=== PATIENT | male | born 1990 ===

== ENCOUNTER 2023-07-07 12:02 | Observation (INO) | payer OTHER ==
[~2023-07-07] VITALS: Ht 170.2 cm; Wt 107.9 kg
[2023-07-07 12:51] LABS: BILIRUBIN, URINE NEGATIVE (negative); BLOOD/HGB, URINE NEGATIVE (Negative); KETONE, URINE NEGATIVE (Negative); LEUK ESTERASE, URINE NEGATIVE (negative); NITRITE, URINE NEGATIVE (negative)
[2023-07-07 12:58] LABS: RDW 13.9 (10.5-15.0)
[2023-07-07 13:00] LABS: WHITE BLOOD CELLS, URINE 0-1 /HPF (0-5)
[2023-07-07 13:01] LABS: REFLEX CULTURE, URINE No (No)
[2023-07-07 13:18] LABS: BASOPHILS 0.7 % (0-2); EOSINOPHILS 0.5 % (0-6); HEMOGLOBIN 14.7 g/dL (12.0-18.0); LYMPHOCYTES 20.8 % (24-44); MCH 27.8 (27-36); MCHC 33.3 g/dl (30-36); MCV 83.6 fl (81-99); PLATELET COUNT 350 K/uL (140-440); RBC 5.27 M/ul (4.3-5.7)
[2023-07-07 13:38] LABS: ALBUMIN 3.8 g/dL (3.4-5.0); ALBUMIN/GLOBULIN RATIO 0.93 (1.1-2.4); ANION GAP 12.8 (7-21); BILIRUBIN, TOTAL 0.5 ng/dL (0.2-1.0); CALCIUM 8.9 mg/dL (8.5-10.1); CREATININE, SERUM 1.1 mg/dL (0.70-1.30); POTASSIUM 3.8 mmol/L (3.5-5.1); PROTEIN, TOTAL 7.9 g/dL (6.4-8.2)
--- NOTE | 2023-07-07 17:22 | CONS ---
[facility] [address], [place] [address] Signed DATE OF CONSULTATION: 07/07/2023 CHIEF COMPLAINT: Periumbilical abdominal pain. 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 Yesterday he started to develop what he thought was some nausea and stomach flu-like symptoms with some epigastric pain. It became more periumbilical and now right lower quadrant. He came to emergency room for evaluation. He is tender in the right lower quadrant with a white count of 12.7. CT scan of the abdomen and pelvis shows a 1 cm appendix without any obvious inflammation. I have been asked to see him as a general surgeon on-call. In the meantime, he has received his Rocephin and Flagyl. PAST MEDICAL HISTORY: None. PAST SURGICAL HISTORY: Left inguinal hernia repair around [age] years of age. SOCIAL HISTORY: He does not smoke or drink. He is to [place] at [phone]. 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 Dr. Nia Bowen is his primary care provider. FAMILY HISTORY: His mom has diabetes. REVIEW OF SYSTEMS: He had 10 systems reviewed and he told me about his inguinal hernia. ALLERGIES: None. MEDICATIONS: None. PHYSICAL EXAMINATION: VITAL SIGNS: His blood pressure is 157/94, his heart rate is 74, his respiratory rate is 17, temperature is 97.3, he is 97% on room air. He is 5 feet 7 inches tall. There is no weight listed in the computer. GENERAL: Thomas is a 32-year-old gentleman who is lying supine semi-recumbent in his ER bed watching TV. He is by himself currently. He has called his . He is in no Electronically Signed By: PAM ELY MD 07/07/23 1722 PATIENT NAME: THOMAS SUAREZ CONSULTATION DATE OF : [birth year] REPORT #: [id number] PHYSICIAN: PAM ELY MD PCP: NIA BOWEN MD REPORT IS CONFIDENTIAL AND NOT TO BE RELEASED WITHOUT AUTHORIZATION [facility] [address], [place] [address] Signed acute distress. He is alert, awake, and interactive. LUNGS: Clear to auscultation bilaterally. HEART: Regular rate and rhythm without murmurs. ABDOMEN: Moderately protuberant, but soft. He clearly has tenderness to deep palpation in the right lower quadrant. LABORATORY DATA: His white blood cell count is 12.7, hemoglobin 14. Electrolytes unremarkable. Liver function tests are negative. Albumin is 3.8. His UA is negative. RADIOGRAPHIC STUDIES: CT scan of the abdomen and pelvis is reviewed including the report and the images. He does have a 1 cm appendix without obvious periappendiceal inflammation. However, the location of his appendix corresponds with the physical exam. ASSESSMENT AND PLAN: Thomas is a 32-year-old gentleman, who appears to have early appendicitis. He OR for his surgery. I gave him our brochure on appendicitis. We looked at it page by page. He understands the location and function of the appendix. He understands laparoscopic versus open appendectomy. There is risk including, but not limited to bleeding, infection, scarring, change in contour of the skin, damage to bowel, appendiceal stump leak, postoperative intra-abdominal abscess, incisional hernias and other unforeseen comorbidities. We have reviewed the expected intraop and postop course. He has expressed understanding and would like to proceed. Pam Ely MD ALB/MODL /[id number] cc: MD Pam Gracia MD Copies: NIA BOWEN DMD Electronically Signed By: PAM ELY MD 07/07/23 172 PATIENT NAME: THOMAS SUAREZ CONSULTATION DATE OF : [birth year] REPORT #: [id number] PHYSICIAN: PAM ELY MD PCP: NIA BOWEN MD REPORT IS CONFIDENTIAL AND NOT TO BE RELEASED WITHOUT AUTHORIZATION [facility] [address] [place] [address] Signed PAM ELY MD ~ Electronically Signed By: PAM ELY MD 07/07/23 172 PATIENT NAME: THOMAS SUAREZ CONSULTATION DATE OF : [birth year] REPORT #: [id number] PHYSICIAN: PAM ELY MD PCP: NIA BOWEN MD REPORT IS CONFIDENTIAL AND NOT TO BE RELEASED WITHOUT AUTHORIZATION
--- NOTE | 2023-07-07 17:31 | NUR ---
07/07/23 1731 Mitra Carcamo 1714-PATIENT ARRIVES TO PACU ON 6L VIA MASK. PATIENT IS REACTIVE. RESP EVEN AND UNLABORED.
--- NOTE | 2023-07-07 17:43 | NUR ---
PT ARRIVED FROM PACU BY STRETCHER. PT TRANSFERS SELF TO BED BY SLIDING SELF OVER TO BED. PT ALERT AND OREINTED TO ALL, REPORTS 3/10 ABDOMINAL PAIN AT THIS TIME, PT DENIES NEED FOR PAIN MEDICATION. VITAL SIGNS STABLE. PAULINE, GLOBAL DIRECTOR AIR AND CLIMATE CHANGE, GIVES REPORT TO POONAM OLSON PRIMARY RN. THIS RN ASSISTING WITH ADMISSION PROCESS. PTS AT BEDSIDE, UPDATED ON PLAN OF CARE AND PTS STATUS. PT REPORTS NEED TO VOID, PT UP TO STAND AND USE BEDSIDE URINAL. PT INDEPENDANT WITH STANDING ALTHOUGH REPORTS MINOR DIZZINESS. PT UNABLE TO VOID AT THIS TIME. PT BACK TO BED WITH MINIMAL ASSISTANCE. ICE PACK PROVIDED, PT STATES THIS HELPS THE PAIN STATING "I DONT' REALLY HAVE ANY "PAIN" RIGHT NOW." CPOX IN PLACE, PT TOLEARTING ROOM AIR WITH OXGYEN SATURATIONS ABOVE 94%. HEART TONES REGULAR. ABDOMEN SOFT, MILDY TENDER TO TOUCH. PT DENIES ABDOMINAL DISTENTION. BOWEL TONES HYPOACTIVE. LAPAROSCOPIC SITES X 3 WNL WITH GAUZE INTACT AND SMALL AMOUNTS OF RED SHADOWING SEEN. PT REQUESTS ICE WATER, JELLOW AND PUDDING, PROVIDED. PT TOELRATES WELL. QUESTIONS ASKED BY FAMILY AND PT, ANSWERED. NO ADDITIONAL REQUESTS OR COMPLAINTS. SCD'S IN PLACE. IV FLUIDS STARTED. CALL LIGHT WIHTIN REACH. FALL PRECAUTIONS REVIEWED WITH PT. BED RAILS UP. PTS REMAINS AT BEDSIDE.
[2023-07-07 17:44] VITALS: BP 141/89
[2023-07-07 18:46] VITALS: BP 137/81
--- NOTE | 2023-07-07 18:48 | NUR ---
PATIENT AWAKE IN BED, ALERT AND ORIENTED X4, NO DISTRESS. PT REPORTS TOLERABLE ABDOMINAL PAIN, 2/10. VITAL SIGNS STABLE. ABDOMINAL DRESSINGS UNCHANGED. PT DENIES NEEDS AT THIS TIME. CALL LIGHT WITHIN REACH.
--- NOTE | 2023-07-07 19:20 | NUR ---
REPORT RECIEVED FROM CARLOS FU AND BEHZAD FU. BOARD UPDATED. PATIENT RESTING IN BED WITH EYES CLOSED. CALL LIGHT WITHIN REACH.
[2023-07-07 19:56] VITALS: BP 133/82
--- NOTE | 2023-07-07 20:00 | NUR ---
ASSESSMENT AND VITAL SIGNS DONE. PATIENT UP TO BR, SBA. SCDS ON. IV ASSESSED AND FLUSHED WITH 10 MLS OF NS, WNL. IV INFUSING PER ORDER, SEE MAR. PATIENT DENIES ANY PAIN AT THIS TIME. WATER REFRESHED. SNACKS GIVEN. CALL LIGHT WITHIN REACH. NO OTHER NEEDS AT THIS TIME.
--- NOTE | 2023-07-07 22:32 | NUR ---
PATIENT RESTING IN BED WATCHING TV. PATIENT UP TO BR, SBA. Pt BACK TO BED. CPOX ON. CALL LIGHT WITHIN REACH. NO OTHER NEEDS AT THIS TIME.
--- NOTE | 2023-07-08 00:04 | NUR ---
PATIENT RESTING IN BED WATCHING TV. Pt STATES HE DOESNT NEED ANYTHING. CALL LIGHT WITHIN REACH. NO OTHER NEEDS AT THIS TIME.
[2023-07-08 02:13] VITALS: BP 134/75
--- NOTE | 2023-07-08 02:40 | NUR ---
PATIENT UP TO BR. ASSESSMENT AND VITAL SIGNS DONE. SBA TO BR. Pt BACK TO BED. Pt COMPLAIN OF 3/10 PAIN THAT INCREASES TO 7/10 WHEN HE COUGHS. PRN PAIN MEDICATION ADMINISTERED, SEE MAR. WATER REFRESHED. CALL LIGHT WITHIN REACH. NO OTHER NEEDS AT THIS TIME.
--- NOTE | 2023-07-08 04:01 | NUR ---
PATIENT RESTING IN BED RESTING WITH EYES CLOSED. RESP OBSERVED. CALL LIGHT WITHIN REACH. NO OTHER NEEDS AT THIS TIME.
[2023-07-08 05:06] VITALS: BP 131/63
--- NOTE | 2023-07-08 07:14 | NUR ---
RECIEVED REPORT FROM NICKIE RAMOS AND NICKIE CARRERO. PT RESTING IN BED WITH EYES CLOSED, BREATHING EVEN AND UNLABORED CPOX REMAINS ON WITH O2 SAT AT 95% ON RA. CALL LIGHT WITHIN REACH, BED RAILS UP. ASSUMING CARE OF PT WITH NICKIE DUKES.
--- NOTE | 2023-07-08 07:30 | NUR ---
REPORT RECEIVED FROM NICKIE RAMOS. THIS RN ASSUMING CARE OF PT WITH NICKIE WEN. PT RESTING IN BED ON LEFT SIDE WITH EYES CLOSED, RESPIRATIONS EVEN AND UNLABORED. DR. ELY UPDATED ON PT STATUS. AWAITING NEW ORDERS.
[2023-07-08] MEDS ORDERED: HYDROCODON-ACE1 EAC8 PO (08:11)
--- NOTE | 2023-07-08 08:40 | NUR ---
MORNING ASSESSMENT. PT STATES PAIN IS 3/10, REQUESTS PAIN MEDICATION, GIVEN (SEE EMAR). IVF DC'D PER ORDER, IV SALINE LOCKED. PT AMBULATES TO RESTROOM AND AROUND ROOM INDEPENDENTLY. CPOX DC'D D/T O2 SATURATION REMAINING >95% ON RA AND DC ORDER. LUNG SOUNDS CLEAR IN ALL LOBES. NO EDEMA PRESENT, SENSATION PRESENT IN ALL EXTREMETIES, CAP REFILL BRISK <3 SECONDS IN ALL EXTREMETIES. SCDs NOT IN PLACE D/T PT WALKING AROUND ROOM AND PER PT REQUEST. ABDOMEN MILDLY DISTENDED, PT STATES HE FEELS "MAYBE A LITTLE BLOATED". ABDOMEN TENDER MIDLINE AROUND SURGICAL SITE. BOWEL TONES ACTIVE IN ALL QUADRANTS, PT DENIES NAUSEA, NO BM SINCE BEFORE SURGERY PER PT. PT TOLERATING FULL LIQUID DIET WELL, MOVES TO REGULAR DIET THIS MORNING, PT ORDERS REGULAR DIET BREAKFAST, HAS NOT COME TO ROOM YET. PT VOIDING QUANTITY SUFFICIENT CLEAR YELLOW URINE. SURGICAL SITES WNL, SCANT AMOUNT OF SEROSANGUINOUS DRAINAGE PRESENT ON INCISIONS, EDGES WELL APPROXIMATED ON ALL THREE SITES, NO SIGNS OF REDNESS/SWELLING. PT STATES NO FURTHER NEEDS AT THIS TIME, CALL LIGHT WITHIN REACH, BED RAILS UP. PT BREAKFAST ARRIVES TO BEDSIDE.
--- NOTE | 2023-07-08 09:10 | OR ---
[facility] [address], [place] [address] Signed DATE OF OPERATION: 07/07/2023 SURGEON: Pam Ely MD PREOPERATIVE DIAGNOSIS: Acute appendicitis. POSTOPERATIVE DIAGNOSIS: Acute inflamed appendicitis. PROCEDURE: Laparoscopic appendectomy. ESTIMATED BLOOD LOSS: None. FINDINGS: Thomas indeed had a thickened indurated and inflamed appendix. 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 Yesterday, he started to notice feelings of nausea like he had the flu. This started epigastric moved to the periumbilical area now is in the right lower quadrant. He came to the emergency room for evaluation. He is tender in the right lower quadrant to deep palpation. White count was a little up at 12.7. His CT scan showed this 1 cm thickened appendix, but no obvious inflammation. I have been asked to see him as a general surgeon on-call. In the meantime, he received his Rocephin and Flagyl. I had met with Thomas in the ER. I brought with me a brochure and I went through a page by page on the location of function of the appendix. We discussed laparoscopic versus open appendectomy. He understands expected intraop and postop course. There is risk including, but not limited to bleeding, infection, scarring, change in contour, skin, damage to bowel, appendiceal stump leak, postoperative intraabdominal abscess incisional hernias and other unforeseen comorbidities. He had expressed understanding and wished to proceed. DESCRIPTION OF PROCEDURE: Thomas was taken directly from the ER down to the OR. He was placed under general endotracheal tube anesthesia. He had already received the Rocephin and Flagyl. He received subcutaneous heparin. SCDs were utilized. He was then prepped and draped in the usual sterile fashion. All trocars were then placed in usual positions under direct Electronically Signed By: PAM ELY MD 07/08/23 0910 PATIENT NAME: THOMAS SUAREZ OPERATIVE REPORT DATE OF : [birth year] REPORT #: [id number] PHYSICIAN: PAM ELY MD PCP: NIA BOWEN MD REPORT IS CONFIDENTIAL AND NOT TO BE RELEASED WITHOUT AUTHORIZATION [facility] [address] [place] [id number] Signed visualization of camera without difficulty. His appendix was visualized in the right lower quadrant. We took pictures throughout for photodocumentation. The mesoappendix was a little bit adherent to the lateral pelvic sidewall. It was gently cauterized and then bluntly dissected free, so we could lift the appendix up for better visualization. We divided the mesoappendix near the base of the appendix in the cecum and we divided the appendix from the cecum with the help of our linear stapler. There was good hemostasis on the staple line. We used our 60 mm vascular load to come across the full length of his mesoappendix. This was divided again with good hemostasis. The appendix was then placed into an EndoCatch bag and taken out through the right subcostal trocar site. We used our laparoscopic suturing device to pass 0-Vicryl suture on either side of the fascia of the subxiphoid trocar site. This was tied down to close this fascia primarily. After this, all the gas was allowed to escape and all the trocars were removed. We closed the fascia of the supraumbilical trocar site with interrupted vqykzz-ih-otcce and simple 0-Vicryl sutures. Local anesthetic was injected into all trocar sites. Each trocar site was irrigated and suctioned out until clear. The skin and dermis of each trocar site were closed with interrupted 3-0 subcuticular Monocryl sutures. Dry gauze and tape was applied to all three incisions. The Jovel catheter was removed without difficulty. Thomas was weaned from his anesthesia, extubated in the OR, and taken to recovery room in stable condition. Pam Ely MD ALB/MODL /[id number] cc: Pam Ely MD Patient chart Nia Bowen MD Copies: PMA ELY MD Electronically Signed By: PAM ELY MD 07/08/23 0910 PATIENT NAME: HTOMAS SUAREZ OPERATIVE REPORT DATE OF : [birth year] REPORT #: [id number] PHYSICIAN: PAM ELY MD PCP: NIA BOWEN MD REPORT IS CONFIDENTIAL AND NOT TO BE RELEASED WITHOUT AUTHORIZATION [address] [address] Signed NIA BOWEN DMD ~ Electronically Signed By: PAM ELY MD 07/08/23 0910 PATIENT NAME: ERICKTHOMAS OPERATIVE REPORT DATE OF : [birth year] REPORT #: [id number] PHYSICIAN: PAM ELY MD PCP: NIA BOWEN MD REPORT IS CONFIDENTIAL AND NOT TO BE RELEASED WITHOUT AUTHORIZATION
--- NOTE | 2023-07-08 09:10 | DS ---
[facility] [address], [place] [address] Signed ADMISSION DATE: 07/07/2023 DISCHARGE DATE: 07/08/2023 FINAL DIAGNOSES: Acute inflamed appendicitis. PROCEDURE: Laparoscopic appendectomy. 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 He developed what he felt was like the stomach flu symptoms with some nausea and anorexia. It started epigastric when periumbilical and then finally right lower quadrant. He came to emergency room for evaluation. He was tender in the right lower quadrant with normal vital signs. White count was slightly up at 12.7. CT scan showed a 1 cm appendix without any significant inflammation. I have been asked to see him as a general surgeon on-call in the emergency room. HOSPITAL COURSE: We took Thomas directly over to the OR and did his uncomplicated laparoscopic appendectomy. He had acute inflamed appendicitis. He has done well both intraop and postop. He has already been doing well on a full liquid diet. He says he feels very comfortable going home. He has no nausea, vomiting, and no bowel movement yet. He has no abdominal distention. Pain has been controlled with the hydrocodone. DISCHARGE PLANS AND MEDICATIONS: Thomas is going to be discharged to home with a prescription for [place] 10/325 one tablet p.o. q.6 hours p.r.n. for severe postoperative pain. We will dispense 20 tablets with no refills. He can use Tylenol, ibuprofen or Aleve as needed for mqxz-iq-nniqgvms postoperative pain. That can be purchased [id number]-[id number]-[id number]. He has no chronic medications. He can always use ice over these areas as well. He is welcome to advance his diet as tolerated. He can continue his activities of daily living including walking up and down stairs and showering bathing as usual. He is not to do any heavy pushing, pulling, or lifting over about 20 pounds. He is not to return to work as an officer at the f[employer]. He is not to drive while on narcotics. I will have him back in the office in 7-10 days to review his results. He has expressed understanding and agrees with the above plan. Electronically Signed By: PAM LEY MD 07/08/23 0910 PATIENT NAME: THOMAS SUAREZ DISCHARGE SUMMARY DATE OF : [birth year] REPORT #: [id number] PHYSICIAN: PAM ELY MD PCP: NIA BOWEN MD REPORT IS CONFIDENTIAL AND NOT TO BE RELEASED WITHOUT AUTHORIZATION [address] [address] Signed Pam Ely MD ALB/GERRYL /[id number] cc: MD Pam Gracia MD Copies: NIA BOWEN DMD, ANDREW L MD ~ Electronically Signed By: PAM ELY MD 07/08/23 0910 PATIENT NAME: THOMAS SUAREZ Juany DISCHARGE SUMMARY DATE OF : [birth year] REPORT #: [id number] PHYSICIAN: PAM ELY MD PCP: NIA BOWEN MD REPORT IS CONFIDENTIAL AND NOT TO BE RELEASED WITHOUT AUTHORIZATION
[2023-07-08 09:30] VITALS: BP 143/72
--- NOTE | 2023-07-08 09:30 | NUR ---
PT DRESSED AND READY FOR DISCHRAGE. STEADY ON FEET AND WAS ABLE TO DRESS INDEPENDANTLY, NO ASSISTANCE NEEDED. PT REPROTS HE TOLERATED BREAFKAST OF EGGS AND TOAST WELL WITHOUT INCREASED PAIN. PT DENIES NAUSEA. VITAL SIGNS STABLE. DISCHRAGE INSTRUCTIONS REVIEWED IN DETAIL WITH AND PTS . PT AND VERBALIZE UNDERSTANDING OF INSTRUCTIONS, MEDICATIONS, FOLLOW UP AND ACTIVITY RESTRICTIONS. PT AND REPORT ALL THEIR QUESTIONS HAVE BEEN ANSWERED. PHARMACIST TO BEDSIDE TO REVIEW MEDICATIONS WITH PT. PT STATES HIS QUESTIONS HAVE BEEN ANSWERED. IV DC'D PER PROTOCOL, AURY AND KARMA APPLIED. PT AMBULATED FROM MED/SURG, DECLINES WHEELCHAIR. NO ADDITIONAL QUESTIONS OR CONCERNS.
--- NOTE | 2023-07-13 11:30 | PATH ---
[facility] [address] [place], [place] [address] Signed SPECIMEN(S): A APPENDIX SPECIMEN SOURCE: A. APPENDIX CLINICAL HISTORY: Appendicitis FINAL PATHOLOGIC DIAGNOSIS: Appendix, appendectomy: - Acute appendicitis with periappendicitis and serositis. - Focal mucosal necrosis. JVR:clv MICROSCOPIC EXAMINATION: Histologic sections of all submitted blocks are examined by light microscopy. These findings, together with the gross examination, support the pathologic diagnosis. GROSS DESCRIPTION: The specimen, labeled and designated "France Suarez" and designated on the requisition "appendix," is received in formalin and consists of Specimen: Appendix with mesoappendix. Dimensions: 7.5 x 2.5 x 2.3 cm. Serosa: [place]-lemos to red-brown. Defect: Not grossly identified. Inking: Staple line is inked Blue. Mucosa: [place]-lemos to red-brown. Fecalith: Not grossly identified. Additional: None. Advertising Coordinator sections are submitted in (A1). AC (under the direct supervision of a pathologist) The Gross Description was prepared using a voice recognition system. The report was reviewed for accuracy; however, sound-alike word errors, addition and/or deletions may occur. If there is any question about this report, please contact Client Services. PERFORMING LABORATORY: Technical component was performed by [facility], [address] [place] [id number] (CLIA# [id number]). Professional interpretation was performed by [facility] [place] [facility], [address] PATIENT NAME: THOMAS SUAREZ PATHOLOGY DATE OF : [birth year] REPORT #: [id number] PHYSICIAN: [facility] PCP: NIA BOWEN MD REPORT IS CONFIDENTIAL AND NOT TO BE RELEASED WITHOUT AUTHORIZATION [address] [address] [address], [place] [address] (CLIA#: [id number]). Diagnostician: Francisco Cantor MD Pathologist Electronically Signed 07/13/2023 Copies: ~ PATIENT NAME: THOMAS SUAREZ PATHOLOGY DATE OF : [birth year] REPORT #: [id number] PHYSICIAN: [facility] PCP: NIA BOWEN MD REPORT IS CONFIDENTIAL AND NOT TO BE RELEASED WITHOUT AUTHORIZATION
== END 2023-07-08 09:35 | disposition home or self-care (01) ==
LOC: ED 12:02 → MS 12:04
PROVIDERS: Emergency Medicine; ADMIT Colon & Rectal Surgery; ATTEND Colon & Rectal Surgery
PROC: 0DTJ0ZZ Resection of Appendix, Open Approach (ICD-10-PCS; principal; 2023-07-07 16:00)
DX: K35.33 Acute appendicitis with perforation, localized peritonitis, and gangrene, with abscess (principal); E66.9 Obesity, unspecified
CPT/HCPCS: 00840; 36415; 74177; 80053; 81001; 85025; 96375; 99285-25; J0131; J0696; J1100; J1644; J1650; J1885; J2250; J2405; J2704; J3490; J7121; Q9967